=== PATIENT | female | born 1995 | race Caucasian/White ===

== ENCOUNTER 2019-12-29 14:45 | Emergency (ER) | payer BC ==
[~2019-12-29] VITALS: Ht 170.2 cm; Wt 45.4 kg
--- NOTE | 2019-12-29 14:53 | NUR ---
CAME IN FOR CHEST TIGHTNESS, SOB SINCE WEDNESDAY. SENT [facility] FOR ABNORMAL CHEST CT SCAN, TO ER BED 1, HOOKED TO MONITOR, CHANGED TO HOSP GOWN, WARM BLANKET PROVIDED. PATIENT AOx 4, BREATHING EVEN AND UNLABORED. DR MURRY AT BEDSIDE
--- NOTE | 2019-12-29 15:18 | NUR ---
TRISTON LOMAX FOR CONSOLT.
[2019-12-29] MEDS ORDERED: PIPERACILLIN /TAZOBACTAM 3.375 G in IV D5W 50 ML IV ONE (15:30)
[2019-12-29] MEDS ORDERED: IV NS 0.9% 1,000 ML BAG IV ONE (15:30)
[2019-12-29 15:33] LABS: BASOPHILS % (AUTO) 0.1 % (0.0-2.0); EOSINOPHILS % (AUTO) 0.1 % (0.0-6.0); HEMATOCRIT 34 % (33-45); HEMOGLOBIN 11.5 g/dL (11.5-14.8); LYMPHOCYTES # (AUTO) 0.3 /CMM (0.8-4.8); MEAN CORPUSCULAR HGB CONC 34 g/dl (31.0-36.0); MEAN CORPUSCULAR VOLUME 98 fL (82-100); MONOCYTES # (AUTO) 0.5 /CMM (0.1-1.30); MONOCYTES % (AUTO) 7.7 % (2.0-12.0); NEUTROPHILS # (AUTO) 5.8 /CMM (1.8-8.9); NEUTROPHILS % (AUTO) 87.1 % (43.0-81.0); PLATELET COUNT (AUTO) 198 /CMM (150-450); RED BLOOD CELL COUNT(AUTO) 3.45 MIL/uL (4.0-5.2); WHITE BLOOD COUNT (AUTO) 6.6 K/uL (4.3-11.0)
[2019-12-29 16:14] LABS: ALANINE AMINOTRANSFERASE 30 U/L (12-78); ALBUMIN 3.3 g/dL (3.4-5.0); ALKALINE PHOSPHATASE 73 U/L (46-116); ASPARTATE AMINOTRANSFERASE 25 U/L (15-37); BILIRUBIN,DIRECT 0.1 mg/dL (0.0-0.2); BILIRUBIN,TOTAL 0.4 mg/dL (0.2-1.0); CALCIUM, SERUM 9.3 mg/dL (8.5-10.1); CARBON DIOXIDE 28 mmol/L (21-32); CHLORIDE 103 mmol/L (98-107); CREATININE 0.6 mg/dL (0.6-1.3); GLUCOSE 93 mg/dL (74-106); POTASSIUM 3.5 mmol/L (3.5-5.1); SODIUM SERUM 140 mmol/L (136-145); TOTAL PROTEIN, SERUM 7.2 g/dL (6.4-8.2); UREA NITROGEN, BLOOD 11 mg/dL (7-18)
[2019-12-29] MEDS ORDERED: ONDANSETRON HCL/PF - ER 4 MG/2 ML VIAL IV ONE (16:30)
[2019-12-29] MEDS ORDERED: MORPHINE SULFATE INJ 2 MG/ML DISP.SYRIN IV ONE (16:30)
[2019-12-29] MEDS ORDERED: MORPHINE SULFATE INJ 4 MG/ML DISP.SYRIN ONE (16:31)
[2019-12-29] MEDS ORDERED: ONDANSETRON HCL/PF 4 MG/2 ML VIAL ONE (16:31)
[2019-12-29 16:48] LABS: APPEARANCE,URINE Clear (CLEAR); BILIRUBIN,URINE Negative (NEGATIVE); BLOOD, URINE Negative Ery/uL (NEGATIVE); COLOR,URINE Yellow (YELLOW); KETONES,URINE Negative (NEGATIVE); LEUKOCYTE ESTERASE ,URINE Negative (NEGATIVE); NITRITE, URINE Negative (NEGATIVE); PROTEIN,URINE Negative (NEGATIVE); UGLUCOSE Negative (NEGATIVE); UROBILINOGEN,URINE 0.2 EU/dL (0.2)
--- NOTE | 2019-12-29 16:54 | NUR ---
DR HOLLAND AT BEDSIDE
[2019-12-29] MEDS ORDERED: DIATR MEGLU/DIATRIZOATE SODIUM 120 ML BOTTLE (GASTROGRAPHIN) ONE (16:57)
--- NOTE | 2019-12-29 16:57 | NUR ---
Cleo barrientos in [facility] - 12/29/19 at 1658 by SAMANTHA Patient discharged to home in stable condition. Written and verbal after care instructions given. Patient verbalizes understanding of instruction.
--- NOTE | 2019-12-29 17:00 | NUR ---
PAGED [facility].
--- NOTE | 2019-12-29 17:15 | NUR ---
CALLED NURSING SUP FOR TELE BED.
--- NOTE | 2019-12-29 17:35 | NUR ---
NURSING SUP GAVE TELE BED 321-1.
--- NOTE | 2019-12-29 17:56 | NUR ---
REPORT GIVEN TO LIOR DOMINGUEZ OF TELE UNIT
[2019-12-29 17:59] VITALS: BP 98/52
[2019-12-29] MEDS ORDERED: ONDANSETRON HCL/PF 4 MG/2 ML VIAL IVP PRN (18:00)
[2019-12-29] MEDS ORDERED: IV D5/ 0.9% NACL 1,000 ML IV PRN (18:00)
[2019-12-29] MEDS ORDERED: MORPHINE SULFATE INJ 2 MG/ML DISP.SYRIN IV PRN (18:00)
[2019-12-29 18:05] LABS: LYMPHOCYTES % (MANUAL) 7 % (16-48); MONOCYTES % (MANUAL) 10 % (0-11.0); NEUTROPHILS % (MANUAL) 83 (42-76)
--- NOTE | 2019-12-29 18:33 | NUR ---
PATIENT AND PARTNER DECIDED TO GO AMA. DR MURRY AT BEDSIDE
--- NOTE | 2019-12-29 18:58 | NUR ---
Patient does not wish to proceed with medical care recommended by IZABEL Tran. Patient given information related to possible complications, up to and including , which could occur as a result of leaving the hospital at this time. Patient verbalizes understanding of risks involved due to leaving against medical advice. Patient has signed AMA form. IV removed. Catheter intact and site benign. Pressure and 4x4 applied to site. No bleeding noted.
[2019-12-29] MEDS ORDERED: PANTOPRAZOLE 40 MG VIAL IV SCH (19:00)
== END 2019-12-29 19:07 | disposition left against medical advice (07) ==
LOC: ER 14:45 → TELE 17:38 → UNDOADMIN 17:38
DX: J98.2 Interstitial emphysema (principal); R07.89 Other chest pain; Z88.2 Allergy status to sulfonamides; Z88.1 Allergy status to other antibiotic agents
CPT/HCPCS: 36415; 71045; 74230; 80048; 80076; 81001; 83605; 84145; 84484; 84702; 85025; 85730; 87040 ×2; 87081; 87086; 93005; 96365; 96375; 99285; J2270; J2405 ×2; J2543; J7030; J7042; J7060; Q9963; 81000-TC

== ENCOUNTER 2019-12-30 00:34 | Inpatient (IN) | payer BC, OTHER ==
[~2019-12-30] VITALS: Ht 170.2 cm; Wt 43.5 kg
[2019-12-30] MEDS ORDERED: MORPHINE SULFATE INJ 2 MG/ML DISP.SYRIN ONE (01:19)
[2019-12-30] MEDS ORDERED: ONDANSETRON HCL/PF 4 MG/2 ML VIAL ONE (01:19)
--- NOTE | 2019-12-30 01:24 | NUR ---
PT CAME TO ER BED 8 C/O LEFT SIDED CHEST PAIN. PT STATES THAT SHE WAS HERE ABOUT 5x HOURS AGO SEEN BY DR. MURRY. PT STATES THAT SHE HAS FLUIDS IN HER LUNGS. PT IS AAOX4. NO SOB. BREATHING EVENLY AND UNLABORED ON 1L OF OXYGEN. 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
[2019-12-30] MEDS ORDERED: MORPHINE SULFATE INJ 2 MG/ML DISP.SYRIN IV ONE ×2 (01:30→03:00)
[2019-12-30] MEDS ORDERED: ONDANSETRON HCL/PF 4 MG/2 ML VIAL IV ONE (01:30)
[2019-12-30] MEDS ORDERED: ONDANSETRON HCL/PF 4 MG/2 ML VIAL IVP PRN (02:30)
[2019-12-30] MEDS ORDERED: MORPHINE SULFATE INJ 2 MG/ML DISP.SYRIN IV PRN (02:30)
--- NOTE | 2019-12-30 02:47 | NUR ---
Report given to Debi DOMINGUEZ for ALESSIA.
--- NOTE | 2019-12-30 02:48 | NUR ---
RN NOTES: RECEIVED ENDORSEMENT FROM ER, SPOKE WITH AI, THIS PATIENT CAME IN THE ER AT EVENING TIME AND LEFT AGAINST MEDICAL ADVICE AT 1900, SHE HAS CHOKING EPISODE,LAST WEDNESDAY SHE WAS [facility] TO URGENT CARE AND PRESCRIBED WITH ORAL ANTIBIOTIC AND PAIN MEDICATION, THEY CAME BACK AGAIN THIS EVENING, SHE RECIEVED TOTAL OF 4 MG MORPHINE AND 4 MG OF ZOFRAN, IV CANNULA ON THE LFA G#20, PATENT, SKIN INTACT, NO PAST MEDICAL HISTORY, NOT ON ANY HOME MEDICATION.
[2019-12-30 03:00] VITALS: BP 126/72
--- NOTE | 2019-12-30 03:00 | NUR ---
RN NOTES: PATIENT BROUGHT IN MS-3W VIA GURNEY, ACCOMPANIED BY 2 ER STAFF, DX:POSSIBLE ESOPHAGEAL PERFORATION, ON HYDROPULPER, TELE PATIENT SINUS RHYTHM RATE-94, SHE LOOKS SLEEPY DUE TO PAIN MEDICATION, A/OX4, ON O2 AT 1L/MIN VIA NC SPO2-100%, SHE CANT HARDLY GIVE INFORMATION AND ANSWER QUESTION DUE TO PAIN IN HER LEFT SIDED CHEST AREA, AGREE FOR SKIN ASSESSMENT: SKIN IS INTACT, NO SKIN DISCOLORATION, NO REDNESS, NOR SWELLING,NO WOUND OR ANY SKIN ISSUES NOTED. SHE HAS TATTOO IN THE RIGHT UPPER BACK, RIGHT HAND AND RIGHT FOOT. SHE REFUSED FOR FLU VACCINE DESPITE EXPLANATION.ON NPO. CAME IN.ORIENTED TO UNIT AND STAFF, FALL,SAFETY, ASPIRATION PRECAUTION OBSERVED.
--- NOTE | 2019-12-30 04:35 | NUR ---
RN NOTES: RAILROAD CAR CLEANING SUPERVISOR WAS PAGE PER REQUEST, THEY ARE ASKING TO SEE HIM, DR. PERDOMO CALLED BACK AND SAID PATIENT WILL BE SEEN IN THE MORNING AND RE-ASSESS, THEN THEY WILL FIGURE OUT WHAT WILL BE THE NEXT PLAN, OF NOW PATIENT WILL BE NPO AND ON PAIN MANAGEMENT, SHE WAS ABLE TO REST AND SLEEP, PAIN SUBSIDES, RN EXPLAINED TO THOROUGHLY AND GIVE HIM TIME TO VENTILATE HIS FEELINGS AND CONCERN ABOUT THE SITUATION, HE AGREE THAT SHE WILL BE SEEN IN THE MORNING.
--- NOTE | 2019-12-30 06:32 | NUR ---
RN NOTES: ABLE TO REST AND SLEEP WHEN SHE WAKE UP, SHE FELT THE SHARP PAIN AGAIN ON THE CHEST AREA, RADIATING ALL OVER HER BODY 08/03, REQUESTING TO HAVE HER MORPHINE, BP-115/70.
--- NOTE | 2019-12-30 07:30 | NUR ---
RECEIVED PT. THIS AM,TEARY EYED AND APPEARED SCARED.STATES LOTS OF PAIN.RN REVIEWED PAIN MED WITH PT.
--- NOTE | 2019-12-30 07:44 | NUR ---
RN NOTES: TAKING A NAP, KEEP RESTED, ENDORSED TO NEXT SHIFT FOR CONTINUITY OF CARE, IS WAITING TO SPEAK WITH THE DOCTOR AND WANTS TO KNOW WHAT WILL BE THEIR PLAN.
[2019-12-30 08:00] VITALS: BP 124/74
--- NOTE | 2019-12-30 08:00 | NUR ---
SPOUSE AT BEDSIDE.ASKING MULTIPLE QUESTIONS.
[2019-12-30] MEDS ORDERED: PIPERACILLIN /TAZOBACTAM 3.375 G in IV D5W 50 ML IV ONE (10:00)
[2019-12-30] MEDS ORDERED: PIPERACILLIN /TAZOBACTAM 3.375 G in IV D5W 100 ML IV SCH ×2 (10:00→15:00)
[2019-12-30] MEDS: MORPHINE SULFATE INJ 2 MG/ML DISP.SYRIN IV PRN ×2 (10:21→13:47)
--- NOTE | 2019-12-30 10:38 | NUR ---
CALLED [facility] REGARDING THE THORACENTESIS, WAITING FOR THE CALL BACK FROM THE RADIOLOGIST CONTRACT TECHNICAL WRITER MD YEUNG, PER [facility] THE RADIOLOGIST WAS CONTRACT TECHNICAL WRITER ALL NIGHT , NOW SLEEPING FOR COUPLE OF HOURS. INFORMED RN
[2019-12-30 10:41] LABS: ABG BASE EXCESS 1.9 mmol/L; ABG OXYGEN SATURATION 95.5 % (92.0-98.5); ABG PCO2 38.7 mmHg (35.0-45.0); ABG PH 7.444 (7.350-7.450); ABG PO2 83.6 mmHg (75.0-100.0); AaDO2 48.7 mmHg; COHb 0.3 % (0.5-1.5); MetHb 0.6 % (0.0-1.5); O2Hb 94.6 % (94.0-97.0); SITE, ABG Right Radial; VENT MODE, BG nasal cannula
[2019-12-30] MEDS ORDERED: IOHEXOL-300 100 ML VIAL IV ONE (10:46)
[2019-12-30] MEDS ORDERED: IV NS 0.9% 250 ML IV ONE (10:46)
--- NOTE | 2019-12-30 11:30 | NUR ---
DR. MI IN AND SPOKE TO PT. AND SPOUSE AT LENGTH,SPOUSE WITH MULTIPLE QUESTIONS.
--- NOTE | 2019-12-30 11:45 | NUR ---
ULTRASOUND ORDERED ALONG WITH THORACENTESIS AND ABG.SPOUSE QUESTIONING EVERYTHING AND REFUSING CT SCAN STATES PT. ALREADY HAD ONE THEN PRODUCED CD OF CAT SCAN DONE ELSEWHERE.
--- NOTE | 2019-12-30 11:50 | NUR ---
DR. MCCORMICK HERE AND LOOKING AT CAT SCAN.WILL FOLLOW UP WITH SPOUSE OD IMPRESSION OF CAT SCAN.
--- NOTE | 2019-12-30 15:48 | NUR ---
AT THIS TIME AWAITING RADIOLOGIST FOR THORACENTESIS PROCEDURE.
[2019-12-30 16:00] VITALS: BP 120/75
--- NOTE | 2019-12-30 16:30 | NUR ---
thoracentesis of lt. lung done.radiologist obtained 750 ml of louis colored fluid pt. tolerated well.specimen to lab.pt. talking about wanting to leave,states she has antibiotic at home.
--- NOTE | 2019-12-30 16:44 | NUR ---
chest x-ray done,photo of report sent to dr. leslie.dr. herrera in and pt,spouse talking to him about being discharged.dr. herrera advised them against this.all precautions against being dc'd given to pt. and spouse.zosyn antibiotic infusing slowly.
--- NOTE | 2019-12-30 17:30 | NUR ---
med x 2 this shift with morphine iv.states had little effect.
--- NOTE | 2019-12-30 18:50 | NUR ---
pt's spouse up at desk discussing with charge coordinator about pt. leaving.diane hernandez adviised spouse against this.
--- NOTE | 2019-12-30 19:05 | NUR ---
dr. leslie texting nurse back indicating not a good idea for pt. to be dc'd based on chest x-ray report.eve. david rogers to inform pt. and spouse.
--- NOTE | 2019-12-30 19:20 | NUR ---
MS RN OPENING NOTES RECEIVED PATIENT AWAKE IN BED, A/OX4, FULLY DRESSED WITH BELONGINGS READY TO LEAVE. PATIENT AND SPOUSE, LELA, STATE THAT THEY WANT TO LEAVE AMA. PER DAY SHIFT NURSEARLENE, DOCTOR SPOKE TO PATIENT AND ADVISED PATIENT AGAINST LEAVING AMA.
--- NOTE | 2019-12-30 19:50 | NUR ---
MS RN NOTES PATIENT ADVISED AND EXPLAINED THE CONSEQUENCES OF LEAVING AMA WITH CHARGE NURSE IN THE ROOM. PATIENT AND SPOUSE REQUEST TO LEAVE AMA BUT REFUSED TO SIGN AMA FORM. IV AND ID BAND REMOVED FROM PATIENT. ALL BELONGINGS WITH PATIENT, REFUSED TO SIGN BELONGINGS LIST. NURSING PAPER AND PRINTS RESTORER AND COMMUNITY ENGAGEMENT MANAGER DOCTOR, MODE PERDOMO, MADE AWARE.
== END 2019-12-30 19:50 | disposition left against medical advice (07) | DRG 368 ==
LOC: ER 00:36 → TELE 02:37 → MED 08:31
PROVIDERS: ADMIT Student in an Organized Health Care Education/Training Program; ATTEND Student in an Organized Health Care Education/Training Program
PROC: 0W9B3ZZ Drainage of Left Pleural Cavity, Percutaneous Approach (ICD-10-PCS; principal; 2019-12-30)
DX: K22.3 Perforation of esophagus (principal); J15.6 Pneumonia due to other Gram-negative bacteria; J90 Pleural effusion, not elsewhere classified; J98.11 Atelectasis; J98.2 Interstitial emphysema; Z88.3 Allergy status to other anti-infective agents; Z88.2 Allergy status to sulfonamides; Z80.3 Family history of malignant neoplasm of breast; Z79.899 Other long term (current) drug therapy
CPT/HCPCS: 36415; 36600; 71045-TC; 80305; 82803-TC; 84703-TC; 85730-TC; 87081-TC; 89051-TC; G0378; J2270; J2405; J2543; J7050; J7060; Q9967